=== PATIENT | male | born 1960 | race Caucasian/White ===

== ENCOUNTER 2020-08-20 14:00 | Emergency (ER) | payer OTHER ==
[2020-08-20 17:23] LABS: BASOPHIL 0.3 % (0-2); EOSINOPHIL 1.5 % (0-5); HCT 44.1 % (42.0-52.0); HGB 15.6 g/dl (13.2-18.0); LYMPHOCYTE 27.5 % (15-48); MCH 30.2 pg (25.0-31.0); MCHC 35.4 g/dL (32.0-36.0); MCV 85.5 fL (78.0-100.0); MONOCYTE 5.6 % (0-12); NEUTROPHIL 64.7 % (41-80); NRBC 0; PLT 189 K/uL (150-400); RBC 5.16 M/uL (4.70-6.00); RDW 12.7 % (11.5-14.0); WBC 7.3 K/uL (4.0-10.5)
[2020-08-20 17:37] LABS: ALBUMIN 4.2 g/dL (3.4-5.0); BILIRUBIN - TOTAL 0.5 mg/dL (0.2-1.0); BUN/CREAT RATIO (CALC) 18.3 RATIO; CREATININE 0.71 mg/dL (0.67-1.17); GLOBULIN (CALCULATION) 3.9 g/dL; POTASSIUM 4.2 mmol/L (3.5-5.1); TOTAL PROTEIN 8.1 g/dL (6.4-8.2)
[2020-08-20 18:36] LABS: BILIRUBIN NEGATIVE (NEGATIVE); BLOOD NEGATIVE Ery/uL (NEGATIVE); CLARITY CLEAR (CLEAR); COLOR YELLOW (YELLOW); GLUCOSE (U) NORMAL (NORMAL); LEUKOCYTES NEGATIVE Leu/uL (NEGATIVE); NITRITE NEGATIVE (NEGATIVE); PROTEIN NEGATIVE (NEGATIVE); SPECIFIC GRAVITY >=1.030 (1.001-1.030); UROBILINOGEN 0.2 mg/dL (0.2-1.0)
[2020-08-20] MEDS ORDERED: NAPROXEN500 MG PO (19:21)
[2020-08-20] MEDS ORDERED: ROBAXIN750 MG PO (19:21)
== END 2020-08-20 19:35 | disposition home or self-care (01) ==
LOC: FER 14:00
PROVIDERS: Physician Assistant
DX: S30.0XXA Contusion of lower back and pelvis, initial encounter (principal); W19.XXXA Unspecified fall, initial encounter; Y92.89 Other specified places as the place of occurrence of the external cause; Y99.0 Civilian activity done for income or pay
CPT/HCPCS: 36415; 71101; 80053; 81003; 85025